=== PATIENT | female | born 1970 | race African-American/Black ===

== ENCOUNTER 2021-11-12 23:24 | Inpatient (IN) | payer BC, OTHER ==
[~2021-11-12] VITALS: Ht 170.2 cm; Wt 109.3 kg
[2021-11-13] MEDS ORDERED: FUROSEMIDE 40MG/4ML VIAL IVP ONE (00:30)
[2021-11-13] MEDS ORDERED: ACETAMINOPHEN 325MG TABLET PO ONE (00:30)
[2021-11-13 00:49] LABS: BASOPHILS % 0.5 % (0.0-2.0); EOSINOPHILS % 0.3 % (0.0-5.0); HEMATOCRIT. 37.1 % (36.0-48.0); HEMOGLOBIN. 12.3 g/dL (12.0-16.0); MEAN CORPUSCULAR HEMOGLOBIN 30.3 pg (28.0-32.0); MEAN CORPUSCULAR VOLUME 91.2 fL (81.0-99.0); MEAN PLATELET VOLUME 9.7 fl (7.4-10.4); MONOCYTES % 8.8 % (2.0-8.0); NEUTROPHILS % 64.4 % (40.0-76.0); PLATELET 248 x1000/uL (130-400); RED BLOOD CELL COUNT 4.07 mill/uL (4.2-5.4); RED CELL DISTRIBUTION WIDTH 13.5 % (11.6-14.6)
[2021-11-13 00:58] LABS: CHLORIDE 107 mEq/L (98-107)
[2021-11-13] MEDS ORDERED: MORPHINE SULFATE 4 MG/ML CPJ (NOT FOR IM USE) IV ONE (01:45)
[2021-11-13] MEDS ORDERED: ACETAMINOPHEN 325MG TABLET PO PRN (11:00)
[2021-11-13] MEDS ORDERED: NALOXONE HCL 0.4MG/ML VIAL IV PRN (11:00)
[2021-11-13] MEDS ORDERED: HYDROCODONE/ACETAMINOPHEN 5/325MG TABLET PO PRN (11:00)
[2021-11-13] MEDS: FUROSEMIDE 40MG/4ML VIAL IVP SCH (11:26)
[2021-11-13] MEDS: LISINOPRIL 20MG TABLET PO SCH (14:15)
[2021-11-13] MEDS ORDERED: CARVEDILOL 6.25 MG TABLET PO SCH (14:15)
[2021-11-13] MEDS ORDERED: HYDRALAZINE 20MG/ML VIAL IV PRN (14:15)
[2021-11-13 15:07] LABS: CHLORIDE 107 mEq/L (98-107)
[2021-11-13 20:45] VITALS: BP 115/77
[2021-11-13] MEDS ORDERED: FURO-151 PO (20:45)
[2021-11-13 22:14] VITALS: BP 115/77
[2021-11-14] VITALS: BP 129/67
[2021-11-14 08:00] VITALS: BP 113/68
[2021-11-14] MEDS: LISINOPRIL 20MG TABLET PO SCH (09:00)
[2021-11-14] MEDS: FUROSEMIDE 40MG/4ML VIAL IVP SCH (09:58)
[2021-11-14 12:00] VITALS: BP 119/68
[2021-11-14 12:56] VITALS: BP 119/68
[2021-11-17 13:10] LABS: ANTI-MYELOPEROXIDASE AB < 9.0 U/mL (0.0-9.0); ANTI-PROTEINASE 3 ABS < 3.5 U/mL (0.0-3.5); ATYPICAL P-ANCA <1:20 titer (Neg:<1:20); CYTOPLASMIC C-ANCA <1:20 titer (Neg:<1:20); PERINUCLEAR P-ANCA <1:20 titer (Neg:<1:20)
== END 2021-11-14 16:12 | disposition home or self-care (01) | DRG 948 ==
LOC: ER 23:24 → 6WST 11-13 05:27 → ENRESERV 11-13 14:06 → EDBEDREQSVC 11-13 17:00 → ENRESERV 11-13 19:45
PROVIDERS: ADMIT Internal Medicine; ATTEND Internal Medicine
DX: R60.0 Localized edema (principal); E16.0 Drug-induced hypoglycemia without coma; I11.9 Hypertensive heart disease without heart failure; M54.30 Sciatica, unspecified side; Z20.822 Contact with and (suspected) exposure to COVID-19; R01.1 Cardiac murmur, unspecified; R73.03 Prediabetes; T38.3X5A Adverse effect of insulin and oral hypoglycemic [antidiabetic] drugs, initial encounter; Y92.89 Other specified places as the place of occurrence of the external cause; Z79.899 Other long term (current) drug therapy; Z82.49 Family history of ischemic heart disease and other diseases of the circulatory system; Z90.710 Acquired absence of both cervix and uterus
CPT/HCPCS: 36415; 71045; 80053; 83036; 83520; 83880; 84443; 84484; 85025; 86038; 86256; 86431; 87426; 93005; 93970; 99285; J1940; J2270